=== PATIENT | male | born 1965 | race Caucasian/White ===

== ENCOUNTER 2023-12-30 14:54 | Inpatient (IN) | payer MEDICAID, OTHER ==
[~2023-12-30] VITALS: Ht 185.4 cm; Wt 95.5 kg
[2023-12-30 16:18] LABS: BASOPHILS # (AUTO) 0.1 X10'3 (0-0.2); BASOPHILS % (AUTO) 0.4 % (0-1); EOSINOPHILS # (AUTO) 0.1 X10'3 (0-0.9); EOSINOPHILS % (AUTO) 0.9 % (0-6); HEMATOCRIT 39.2 % (42.0-52.0); HEMOGLOBIN 12.9 g/dl (14.0-17.9); LYMPHOCYTES # (AUTO) 2.3 X10'3 (1.1-4.8); MEAN CORPUSCULAR HEMOGLOBIN 30.5 PG (27.0-31.0); MEAN CORPUSCULAR HGB CONC 33.1 g/dL (33.0-36.5); MEAN CORPUSCULAR VOLUME 92.2 FL (78-98); MEAN PLATELET VOLUME 7.1 FL (7.4-10.4); MONOCYTES # (AUTO) 1.5 X10'3 (0-0.9); MONOCYTES % (AUTO) 8.8 % (2-12); NEUTROPHILS # (AUTO) 12.7 X10'3 (1.8-7.7); NEUTROPHILS % (AUTO) 75.9 % (42-75); PLATELET COUNT 381 X10'3 (140-440); RED BLOOD COUNT 4.25 X10'6 (4.70-6.10); RED CELL DISTRIBUTION WIDTH 13.6 % (11.5-14.5); WHITE BLOOD COUNT 16.7 X10'3 (4.5-11.0)
[2023-12-30 16:26] LABS: ANION GAP 7 (8-16); BLOOD UREA NITROGEN 13 MG/DL (7-18); C-REACTIVE PROTEIN 16.61 MG/DL (0.0-0.5); CALCIUM 8.8 MG/DL (8.5-10.1); CHLORIDE 103 MMOL/L (99-107); CREATININE 1.08 MG/DL (0.60-1.10); GLUCOSE 138 MG/DL (70-104); POTASSIUM 3.8 MMOL/L (3.5-5.1); SODIUM 138 MMOL/L (135-145); TOTAL CARBON DIOXIDE 27.8 MMOL/L (24-32); eCRCL 86 ML/MIN; eGFR 71 ML/MIN
[2023-12-30 16:28] LABS: APTT 30 SECONDS (22-32); PROTHROMBIN TIME 10.5 SECONDS (9.0-12.0)
[2023-12-30] MEDS: normal saline 1000ML IV soln IVB ONE (19:05)
[2023-12-30] MEDS: sulfamethoxazole/trimethoprim DS (800/160mg) tablet PO ONE (19:10)
[2023-12-30] MEDS: CefTRIAXone/D5W-Rocephin 1gm 50 ML IV ONE (19:10)
[2023-12-30] MEDS ORDERED: acetaminophen 325mg tablet PO PRN (19:25)
[2023-12-30] MEDS ORDERED: potassium Cl 20 mEq SR tablet PO PRN ×2 (19:25)
[2023-12-30] MEDS ORDERED: potassium Cl 40MEQ/1/2NS 520ml 520 ML IV PRN (19:25)
[2023-12-30] MEDS ORDERED: ondansetron/PF 4mg/2ml inj IV PRN (19:25)
[2023-12-30] MEDS: PERFLUTREN PROTEIN-A MICROSPHR (Optison) 0.22 MG/ML 3ML VIAL IV ONE (19:25)
[2023-12-30] MEDS ORDERED: mag hydrox/Alum hydrox/simeth 30ml oral suspension PO PRN (19:25)
[2023-12-30] MEDS ORDERED: magnesium 4gm in 100ml NS 100 ML IV PRN (19:25)
[2023-12-30] MEDS ORDERED: magnesium Cl slow-release 64mg tablet PO PRN (19:25)
[2023-12-30] MEDS ORDERED: magnesium 2GM in 50ml NS 50 ML IV PRN (19:25)
[2023-12-30] MEDS: K and/or MAG REPLACEMENT MC SCH (20:00)
[2023-12-30] MEDS: HYDROcodone/acetaminophen 10/325mg tab PO SCH (20:36)
[2023-12-30] MEDS: DOXYCYCLINE 100MG CAPSULE PO SCH (20:37)
[2023-12-30] MEDS: docusate sod 100mg capsule PO SCH (20:37)
[2023-12-30] MEDS: heparin, porcine 5000 units/ml vial SQ SCH (20:38)
[2023-12-30] MEDS: normal saline 1000ml 1,000 ML IV SCH (20:41)
[2023-12-30 23:00] VITALS: BP 128/82; PULSE 104; RESP 16; TEMP 99.3; O2SAT 98
[2023-12-31 05:35] LABS: BASOPHILS # (AUTO) 0.1 X10'3 (0-0.2); BASOPHILS % (AUTO) 0.9 % (0-1); EOSINOPHILS # (AUTO) 0.3 X10'3 (0-0.9); HEMATOCRIT 36.8 % (42.0-52.0); LYMPHOCYTES # (AUTO) 3.4 X10'3 (1.1-4.8); LYMPHOCYTES % (AUTO) 23.2 % (21-51); MEAN CORPUSCULAR HEMOGLOBIN 30.2 PG (27.0-31.0); MEAN CORPUSCULAR HGB CONC 32.7 g/dL (33.0-36.5); MEAN CORPUSCULAR VOLUME 92.4 FL (78-98); MEAN PLATELET VOLUME 7.5 FL (7.4-10.4); MONOCYTES # (AUTO) 1.4 X10'3 (0-0.9); MONOCYTES % (AUTO) 9.9 % (2-12); NEUTROPHILS # (AUTO) 9.3 X10'3 (1.8-7.7); PLATELET COUNT 348 X10'3 (140-440); RED BLOOD COUNT 3.98 X10'6 (4.70-6.10); WHITE BLOOD COUNT 14.6 X10'3 (4.5-11.0)
[2023-12-31 05:52] LABS: ALANINE AMINOTRANSFERASE 50 U/L (12-78); ALBUMIN 2.3 G/DL (3.4-5.0); ALBUMIN/GLOBULIN RATIO 0.6 (1.1-1.5); ALKALINE PHOSPHATASE 99 IU/L (46-116); ANION GAP 5 (8-16); ASPARTATE AMINO TRANSFERASE 32 U/L (10-37); BILIRUBIN,TOTAL 0.3 MG/DL (0.1-1.0); BLOOD UREA NITROGEN 11 MG/DL (7-18); BUN/CREATININE RATIO 12.1 (10.0-20.0); CHLORIDE 106 MMOL/L (99-107); CREATININE 0.91 MG/DL (0.60-1.10); GLUCOSE 117 MG/DL (70-104); POTASSIUM 4.2 MMOL/L (3.5-5.1); SODIUM 138 MMOL/L (135-145); TOTAL CARBON DIOXIDE 26.6 MMOL/L (24-32); TOTAL PROTEIN 6.4 G/DL (6.4-8.2); eCRCL 102 ML/MIN; eGFR 86 ML/MIN
[2023-12-31 06:00] VITALS: BP 133/84; PULSE 81; RESP 14; TEMP 98; O2SAT 94
[2023-12-31 06:36] LABS: RHEUM FACTOR QUAL REFLEX TITER NEGATIVE (Neg)
[2023-12-31 07:51] LABS: BILIRUBIN,URINE NEGATIVE (Neg); CLARITY,URINE CLEAR (Clear); COLOR,URINE YELLOW (Yellow); GLUCOSE, URINE NEGATIVE (Neg); KETONES,URINE NEGATIVE (Neg); LEUKOCYTE ESTERASE ,URINE NEGATIVE (Neg); NITRITES, URINE NEGATIVE (Neg); OCCULT BLOOD,URINE NEGATIVE (Neg); PH,URINE 6.5 (4.8-8.0); PROTEIN,URINE NEGATIVE (Neg)
[2023-12-31 07:53] LABS: UA COLLECTION TYPE NON-SPECIFIED
[2023-12-31 08:00] VITALS: RESP 16; O2SAT 96
[2023-12-31 10:00] VITALS: BP 129/72; PULSE 76; RESP 16; TEMP 98.3; O2SAT 97
[2023-12-31 18:00] VITALS: BP 118/85; PULSE 84; RESP 20; TEMP 98.8; O2SAT 96
[2023-12-31] MEDS: diphenhydrAMINE 50 mg/ml inj IV SCH (19:22)
[2023-12-31] MEDS: methylPREDNISolone sod succ 125mg/2ml vial IV SCH (19:22)
[2023-12-31] MEDS: ringers solution, lacted 1,000 ML IV ONE (19:24)
[2023-12-31] MEDS: ketorolac trometh. 30mg/ml inj. IV SCH (19:24)
[2023-12-31 20:00] VITALS: RESP 20; O2SAT 96
[2023-12-31] MEDS: CefTRIAXone/D5W-Rocephin 1gm 50 ML IV SCH (20:53)
[2023-12-31 22:00] VITALS: BP 132/82; PULSE 74; RESP 18; TEMP 95.3; O2SAT 97
[2024-01-01 06:00] VITALS: BP 106/65; PULSE 71; RESP 20; TEMP 97.6; O2SAT 97
[2024-01-01 06:30] LABS: BASOPHILS % (AUTO) 0.2 % (0-1); EOSINOPHILS % (AUTO) 0 % (0-6); HEMATOCRIT 38.4 % (42.0-52.0); HEMOGLOBIN 12.7 g/dl (14.0-17.9); LYMPHOCYTES # (AUTO) 1.2 X10'3 (1.1-4.8); LYMPHOCYTES % (AUTO) 8.9 % (21-51); MEAN CORPUSCULAR HEMOGLOBIN 30.4 PG (27.0-31.0); MEAN CORPUSCULAR HGB CONC 33.1 g/dL (33.0-36.5); MEAN CORPUSCULAR VOLUME 91.7 FL (78-98); MEAN PLATELET VOLUME 7.5 FL (7.4-10.4); MONOCYTES # (AUTO) 0.2 X10'3 (0-0.9); MONOCYTES % (AUTO) 1.3 % (2-12); NEUTROPHILS # (AUTO) 11.9 X10'3 (1.8-7.7); NEUTROPHILS % (AUTO) 89.6 % (42-75); PLATELET COUNT 410 X10'3 (140-440); RED BLOOD COUNT 4.19 X10'6 (4.70-6.10); RED CELL DISTRIBUTION WIDTH 13.9 % (11.5-14.5); WHITE BLOOD COUNT 13.3 X10'3 (4.5-11.0)
[2024-01-01 06:45] LABS: ALANINE AMINOTRANSFERASE 69 U/L (12-78); ALBUMIN 2.3 G/DL (3.4-5.0); ALBUMIN/GLOBULIN RATIO 0.5 (1.1-1.5); ALKALINE PHOSPHATASE 113 IU/L (46-116); ANION GAP 8 (8-16); ASPARTATE AMINO TRANSFERASE 43 U/L (10-37); BILIRUBIN,TOTAL 0.3 MG/DL (0.1-1.0); BLOOD UREA NITROGEN 15 MG/DL (7-18); BUN/CREATININE RATIO 18.1 (10.0-20.0); CALCIUM 8.6 MG/DL (8.5-10.1); CHLORIDE 101 MMOL/L (99-107); CREATININE 0.83 MG/DL (0.60-1.10); GLUCOSE 160 MG/DL (70-104); MAGNESIUM 1.9 MG/DL (1.5-2.4); POTASSIUM 4.2 MMOL/L (3.5-5.1); SODIUM 134 MMOL/L (135-145); TOTAL CARBON DIOXIDE 24.9 MMOL/L (24-32); TOTAL PROTEIN 7.1 G/DL (6.4-8.2); eCRCL 112 ML/MIN; eGFR > 90 ML/MIN
[2024-01-01 08:15] VITALS: RESP 18; O2SAT 98
[2024-01-01 10:00] VITALS: BP 136/83; PULSE 87; RESP 18; TEMP 98.1; O2SAT 95
[2024-01-01] MEDS: magnesium hydroxide 30ml (MOM) UD suspension PO PRN (17:46)
[2024-01-01 18:00] VITALS: BP 114/68; PULSE 92; RESP 18; TEMP 98.5; O2SAT 95
[2024-01-01 19:00] VITALS: RESP 18; O2SAT 95
[2024-01-01] MEDS: methylPREDNISolone sod succ 125mg/2ml vial IV SCH (21:21)
[2024-01-01 22:00] VITALS: BP 121/65; PULSE 94; RESP 16; TEMP 97.7; O2SAT 97
[2024-01-02 05:55] LABS: ALANINE AMINOTRANSFERASE 81 U/L (12-78); ALBUMIN 2.2 G/DL (3.4-5.0); ALBUMIN/GLOBULIN RATIO 0.5 (1.1-1.5); ALKALINE PHOSPHATASE 117 IU/L (46-116); ANION GAP 5 (8-16); ASPARTATE AMINO TRANSFERASE 47 U/L (10-37); BILIRUBIN,TOTAL 0.3 MG/DL (0.1-1.0); BLOOD UREA NITROGEN 24 MG/DL (7-18); BUN/CREATININE RATIO 27.3 (10.0-20.0); CALCIUM 8.2 MG/DL (8.5-10.1); CHLORIDE 103 MMOL/L (99-107); CREATININE 0.88 MG/DL (0.60-1.10); GLUCOSE 138 MG/DL (70-104); MAGNESIUM 2.1 MG/DL (1.5-2.4); POTASSIUM 4.7 MMOL/L (3.5-5.1); SODIUM 133 MMOL/L (135-145); TOTAL CARBON DIOXIDE 24.9 MMOL/L (24-32); TOTAL PROTEIN 6.7 G/DL (6.4-8.2); eCRCL 106 ML/MIN; eGFR 90 ML/MIN
[2024-01-02 06:00] VITALS: BP 125/83; PULSE 83; RESP 18; TEMP 98.1; O2SAT 96
[2024-01-02 06:13] LABS: BASOPHILS % (AUTO) 0.1 % (0-1); EOSINOPHILS % (AUTO) 0 % (0-6); HEMATOCRIT 36.5 % (42.0-52.0); HEMOGLOBIN 12.1 g/dl (14.0-17.9); LYMPHOCYTES # (AUTO) 1.7 X10'3 (1.1-4.8); LYMPHOCYTES % (AUTO) 6.1 % (21-51); MEAN CORPUSCULAR HEMOGLOBIN 30.4 PG (27.0-31.0); MEAN CORPUSCULAR HGB CONC 33.2 g/dL (33.0-36.5); MEAN CORPUSCULAR VOLUME 91.5 FL (78-98); MEAN PLATELET VOLUME 7.6 FL (7.4-10.4); MONOCYTES # (AUTO) 0.9 X10'3 (0-0.9); MONOCYTES % (AUTO) 3.3 % (2-12); NEUTROPHILS # (AUTO) 25.7 X10'3 (1.8-7.7); NEUTROPHILS % (AUTO) 90.5 % (42-75); PLATELET COUNT 466 X10'3 (140-440); RED BLOOD COUNT 3.99 X10'6 (4.70-6.10)
[2024-01-02 06:33] LABS: WHITE BLOOD COUNT 28.4 X10'3 (4.5-11.0)
[2024-01-02 07:41] LABS: TOTAL CELLS COUNTED 100
[2024-01-02 07:43] LABS: BURR CELLS FEW; PLATELET ESTIMATE INCREASED
[2024-01-02 07:44] LABS: POIKILOCYTOSIS FEW; TOXIC GRANULATION 1+
[2024-01-02 12:00] VITALS: BP 139/83; PULSE 91; RESP 18; TEMP 97.4; O2SAT 97
[2024-01-02] MEDS ORDERED: ACET-1008 PO (12:04)
[2024-01-02] MEDS ORDERED: DOXY-224 PO (12:05)
[2024-01-02] MEDS ORDERED: PRED20TA PO (12:05)
[2024-01-02] MEDS ORDERED: LISI5TAB22 PO (16:09)
== END 2024-01-02 13:37 | disposition home or self-care (01) | DRG 872 ==
LOC: ER 14:55 → ED HOLD 19:41 → EDBEDREQ 22:10 → SUR 3N 23:07
PROVIDERS: ADMIT Internal Medicine; ATTEND Family Medicine
DX: A41.9 Sepsis, unspecified organism (principal); L03.115 Cellulitis of right lower limb; A54.42 Gonococcal arthritis; F20.9 Schizophrenia, unspecified; D72.829 Elevated white blood cell count, unspecified; T38.0X5A Adverse effect of glucocorticoids and synthetic analogues, initial encounter; F15.90 Other stimulant use, unspecified, uncomplicated; Z85.72 Personal history of non-Hodgkin lymphomas; Y92.89 Other specified places as the place of occurrence of the external cause
CPT/HCPCS: 36415; 71045; 73564; 73610; 80048; 80053; 81003; 83605; 83735; 84145; 85007; 85025; 85610; 85651; 85730; 86038; 86140; 86430; 87040; 87081; 87491; 93306; 96365; 99285; G0378; J0696; J1200; J1644; J1885; J2919; J7030; J7120